=== PATIENT | female | born 1985 | race Caucasian/White ===

== ENCOUNTER 2016-08-06 09:05 | Emergency (ER) | payer MEDICAID ==
[2016-08-06 09:23] VITALS: TEMP 98.3; BMI 55.2
[2016-08-06] MEDS ORDERED: DIAZEPAM 5 MG TAB PO ONE (09:39)
[2016-08-06] MEDS ORDERED: IBUPROFEN 800 MG TAB PO ONE (09:39)
[2016-08-06] MEDS ORDERED: HYDROCODONE 5 MG/ACETAMIN 325 MG TAB PO ONE (09:39)
--- NOTE | 2016-08-06 09:49 | EDPRACDOC ---
- General Information Chief Complaint: Back Pain Stated Complaint: BACK AND LEG PAIN Time Seen by Provider: 08/06/16 09:35 Mode Of Arrival: Car Home Medications: Home Medications Methocarbamol [Robaxin] 750 mg PO TID PRN 11/27/15 Alprazolam [Xanax] 0.5 mg PO Q8H PRN 12/01/15 Hydrocodone/Acetaminophen [Lortab 5-325 mg Tablet] 1 each PO Q4H PRN #15 tablet 02/02/16 Ketorolac Tromethamine [Toradol] 10 mg PO Q6H PRN #20 tab 02/02/16 Silver Sulfadiazine [Silvadene] 20 gm TOP BID #400 cream..g. 02/02/16 Diazepam [Valium] 5 mg PO BID #10 tablet 08/06/16 Hydrocodone/Acetaminophen [Lortab 5-325 mg Tablet] 1 each PO Q4H PRN #15 tablet 08/06/16 Ibuprofen 800 mg PO Q8H PRN #20 tablet 08/06/16 Allergies/Adverse Reactions: Allergies Allergy/AdvReac Type Severity Reaction Status Date / Time No Known Allergies Allergy Verified 02/02/16 22:41 - History of Present Illness Onset: CHRONIC HPI: PT SAID THAT SHE HAS A HX OF CHRONIC BACK PROBLEMS. SHE IS NOT UNDER THE CARE OF A DR RIGHT NOW. PT SAID THAT SHE HAS CRAMPING OF HER RIGHT BUTTOCK AND PAIN GOING DOWN BOTH LEGS. Pain Location: Reports: Right, Lower Pain Radiates To: Reports: Calf Pain Caused By: Reports: Spontaneous Relevant History: Reports: Chronic back pain Currently ?: No Pain Severity: Reports: Moderate Pain Quality: Reports: Sharp Worsened By: Reports: Movement Associated Signs and Symptoms: Reports: None ED Past Medical History - Patient Medical History GI/ History: Reports: Urinary Tract Infection Psychological History: Reports: Depression, Anxiety Additional Past Medical History: CHRONIC BACK PAIN Surgical History: Reports: Cholecystectomy. Denies: Hysterectomy - Family Medical History Reports: Hypertension (MOTHER), Diabetes (MOTHER), Cancer (? MOTHER COLON CA). Denies: Stroke, Cardiac Disorders - Social Medical History Smoking Status: Heavy tobacco smoker (5 or more cigarettes/day or daily pipe/ cigar) ETOH: None Substance Abuse: None Lives In: Home EDM Review of Systems - Review of Systems ROS Negative Except as Marked: Yes All systems reviewed and were negative except as marked Musculoskeletal: Back - Physical Exam Constitutional: Alert (Awake), No apparent distress Oriented to: Time, Person, Place Last recorded Vital Signs: Last Vital Signs Temp 98.3 F 08/06/16 09:18 Pulse 101 08/06/16 09:18 Resp 18 08/06/16 09:18 BP 164/96 08/06/16 09:18 Pulse Ox 96 08/06/16 09:18 Oxygen Pulse Oxygen Saturation 96 O2 Device Room Air Oxygen Flow Rate Fraction of Inspired Oxygen ( FIO2) - HEENT Head: Normal ( normocephalic) Eye Exam: Normal (PERRL, EOMI, Sclera white) Oropharynx: Normal (Pharynx:Moist without exudate,Gums-no swelling) ENT EAC: Normal TMJ: Normal Nose: No Symptoms Reported (septum midline) Neck: Normal (FROM, trachea at midline) - Respiratory/Cardiovascular Respiratory: Normal - CTA (BBS clear to auscultation without adventitious sounds ) Cardiovascular: Normal (RRR without murmur, gallop or rub) - GI Auscultation: Normal (NABS) Palpation: Normal (Soft,No rebound or guarding, non distended) Tenderness: Non tender Gusman's Sign: Negative - Musculoskeletal Back: Lumbar TTP Extremities: Normal (Normal tone, Pulses 2+ No cyanosis or edema, FROM) - Integumentary Skin: Normal, Warm, Dry Lymphatics: Normal (no adenopathy) - Neurologic Memory Impaired: Normal Motor Function: Normal (Normal tone, Pulses 2+ No cyanosis or edema, FROM) Cranial Nerve: Normal (CN II-X11 intact sensation, strength 5/5) Cerebellar: Normal Mood Description: Normal Perception: Normal Decision Time to Discharge: 09:51 - Departure Yes I personally saw and evaluated the patient. Disposition: Home Condition: Fair Final Diagnosis: Morbid obesity, Lumbar radiculopathy Instructions: Lumbar Radiculopathy (ED) Education/Counseling Given To: Patient Education/Counseling Given Regarding: Diagnosis, Treatment, Follow Up Referrals: [Primary Care Provider] - One Week Nicolás Urias MD [Staff Physician] - One Week Prescriptions: Diazepam [Valium] 5 mg PO BID #10 tablet Hydrocodone/Acetaminophen [Lortab 5-325 mg Tablet] 1 each PO Q4H PRN #15 tablet PRN Reason: Pain Ibuprofen 800 mg PO Q8H PRN #20 tablet PRN Reason: Pain
[2016-08-06 10:53] VITALS: BP 140/95; PULSE 82
== END 2016-08-06 10:52 | disposition home or self-care (01) ==
LOC: ED 09:05
DX: M54.16 Radiculopathy, lumbar region (principal); E66.01 Morbid (severe) obesity due to excess calories; Z68.43 Body mass index [BMI] 50.0-59.9, adult; F17.200 Nicotine dependence, unspecified, uncomplicated; Z79.899 Other long term (current) drug therapy
CPT/HCPCS: 99283; J3490